=== PATIENT | male | born 1995 | race African-American/Black ===

== ENCOUNTER 2019-01-29 21:18 | Inpatient (IN) ==
[2019-01-29] MEDS ORDERED: SODIUM CHLORIDE 0.9% 1,000 ML IV STA (21:29)
[2019-01-29] MEDS ORDERED: DIPHTHERIA/TETANUS ADULT VACCINE 0.5 ML SYRINGE IM ONE (21:31)
[2019-01-29] MEDS ORDERED: SODIUM CHLORIDE 0.9% 1,000 ML IV PRN (21:32)
[2019-01-29 21:35] LABS: Basophils # 0.1 10*3/uL (0.0-0.2); Basophils % 0.5 % (0.0-0.8); Eosinophils # 0.2 10*3/uL (0.0-0.87); Eosinophils % 1.6 % (0.00-10.9); Hematocrit 37.8 VOL% (42.0-52.0); Hemoglobin 11.4 GM/DL (14.0-18.0); Immature Granulocytes % 1.6 %; Immature Granulocytes Absolute 0.16 #; Lymphocytes # 4.9 10*3/uL (1.4-4.0); Lymphocytes % 48.4 % (21.2-54.2); Mean Corpuscular HGB Conc 30.2 GM/DL (32-36); Mean Platelet Volume 10.2 FL (9.6-12.0); Monocytes % 5.4 % (1.7-12.7); Neutrophils % 42.5 % (38.7-73.9); Platelet Count 264 T/CUMM (130-400); Red Blood Count 4.02 MC/CUMM (3.8-5.5); Red Cell Distribution Width 15.7 % (9.3-17.3); White Blood Count 10.1 T/CUMM (4-12)
[2019-01-29 21:43] LABS: INR 1.1; PT Patient Result 11.8 SECS (9.6-12.2); Partial Thromboplastin Time 21.3 SECS (20.8-36.0)
[2019-01-29] MEDS ORDERED: HEPARIN 5,000 UNIT/1 ML VIAL ONE (22:04)
[2019-01-29] MEDS ORDERED: ceFAZolin 1,000 MG VIAL ONE (22:04)
[2019-01-29 22:10] LABS: Albumin 3.4 G/DL (3.4-5.0); Bilirubin,Total 0.4 MG/DL (0.2-1.0); Calcium 7.7 MG/DL (8.5-10.1); Osmolality,Calculated 284.5 MOS/KG (273-304); Total Protein 6.3 G/DL (6.4-8.3)
[2019-01-29 22:29] LABS: Barbiturates Screen,Urine Negative (Negative); Benzodiazepines Screen,Urine Negative (Negative); Cannabinoid Screen,Urine Positive (Negative); Opiate Screen,Urine Positive (Negative); Phencyclidine Screen,Urine Negative (Negative)
[2019-01-29 22:35] LABS: Apearance,Urine CLEAR (Clear); Bilirubin,Urine Negative (Negative); Blood, Urine Negative (Negative); Glucose,Urine (UA) Negative (Negative); Hyaline Casts,Urine 1 /LPF (0-3); Ketones,Urine 5 mg/dL (Negative); Mucus,Urine Occasional /LPF (Occasional); Nitrite,Urine Negative (Negative); Protein,Urine Negative; RBC,Urine 2 /HPF (0-4); Urine Color Yellow (Yellow); Urine Specific Gravity 1.026 (1.001-1.035); Urine Urobilinogen < 2.0 EU/DL (0.2-1.0); WBC,Urine 2 /HPF (0-6)
[2019-01-29] MEDS ORDERED: diphenhydrAMINE 50 MG/1 ML VIAL IV PRN (23:57)
[2019-01-29] MEDS ORDERED: ONDANSETRON 4 MG/2 ML VIAL IV PRN (23:57)
[2019-01-29] MEDS ORDERED: PROMETHAZINE INJ 25 MG in SODIUM CHLORIDE 0.9% 50 ML IV PRN (23:57)
[2019-01-29] MEDS ORDERED: MEPERIDINE 25 MG/1 ML VIAL IV PRN (23:57)
[2019-01-30 00:34] LABS: ABG Base Excess -6.6 MMOL/L (-2.5-2.5); ABG Oxygen Saturation 99.5 % (95-100); ABG PCO2 48.9 MM HG (35-48); ABG PH 7.238 (7.35-7.45); ABG TCO2 19.5 MMOL/L (23-27); Glucose Heart Surgery 108 MG/DL (74-106); Hematocrit Heart Surgery 29.1 PERCENT (42-52); Hemoglobin Heart Surgery 9.4 G/DL (14.0-18.0); Ionized Calcium Arterial 1.24 MMOL/L (1.21-1.46); PCO2 Patient Temp Arterial 48.9 MMHG; PH Patient Temp Arterial 7.238; Patient Temperature 37 CELCIUS; Potassium Heart/CVR 4.5 MMOL/L (3.5-5.1); Sodium Heart/CVR 137 MMOL/L (135-145)
[2019-01-30] MEDS ORDERED: PROPOFOL 1,000 MG/100 ML BOTTLE IV SCH ×2 (01:00→01:30)
[2019-01-30] MEDS ORDERED: PROPOFOL 1,000 MG/100 ML BOTTLE IV ONE (01:02)
[2019-01-30] MEDS ORDERED: SODIUM CHLORIDE 0.9% 1,000 ML IV PRN (01:14)
[2019-01-30] MEDS ORDERED: LACTATED RINGERS 1,000 ML IV ONE (01:14)
[2019-01-30] MEDS ORDERED: KETAMINE 500 MG/10 ML VIAL ONE (01:29)
[2019-01-30] MEDS ORDERED: ePHEDrine 50 MG/ML AMP ONE (01:30)
[2019-01-30] MEDS ORDERED: ONDANSETRON 4 MG/2 ML VIAL ONE ×2 (01:32→01:38)
[2019-01-30] MEDS: HYDROmorphone 2 MG/1 ML VIAL IV PRN ×5 (01:35→10:59)
[2019-01-30] MEDS ORDERED: LIDOCAINE 2% 5 ML VIAL ONE (01:36)
[2019-01-30] MEDS ORDERED: PROPOFOL 200 MG/20 ML VIAL IV ONE (01:36)
[2019-01-30] MEDS ORDERED: CALCIUM CHLORIDE 1,000 MG/10 ML VIAL IV ONE (01:37)
[2019-01-30] MEDS ORDERED: MIDAZOLAM 2 MG/2 ML VIAL ONE (01:37)
[2019-01-30] MEDS ORDERED: fentaNYL 100 MCG/2 ML VIAL ONE (01:37)
[2019-01-30] MEDS ORDERED: SEVOFLURANE 1 UNIT/15 MINUTE INH ONE (01:37)
[2019-01-30] MEDS ORDERED: HEPARIN 10,000 UNIT/10 ML VIAL ONE (01:37)
[2019-01-30] MEDS ORDERED: SODIUM BICARBONATE 50 MEQ/50 ML VIAL IV ONE (01:37)
[2019-01-30] MEDS ORDERED: SUCCINYLCHOLINE 200 MG/10 ML VIAL ONE (01:38)
[2019-01-30] MEDS ORDERED: GLYCOPYRROLATE 0.4 MG/2 ML VIAL ONE (01:38)
[2019-01-30] MEDS ORDERED: PHENYLEPHRINE 1 MG/10 ML SYRINGE IV ONE (01:38)
[2019-01-30] MEDS ORDERED: NEOSTIGMINE 10 MG/10 ML VIAL ONE (01:38)
[2019-01-30] MEDS ORDERED: ROCURONIUM 100 MG/10 ML VIAL IV ONE (01:38)
[2019-01-30] MEDS ORDERED: SODIUM CHLORIDE 0.9% 250 ML IV ONE (01:38)
[2019-01-30] MEDS ORDERED: PHENYLEPHRINE 10 MG/1 ML VIAL IV ONE (01:38)
[2019-01-30] MEDS ORDERED: SODIUM CHLORIDE 0.9% 2,000 ML IV ONE (01:38)
[2019-01-30] MEDS ORDERED: LACTATED RINGERS 4,000 ML IV ONE (01:38)
[2019-01-30] MEDS ORDERED: INFLUENZA VIRUS VACCINE 0.5 ML SYRINGE IM ONE (01:46)
[2019-01-30 02:06] LABS: Basophils % 0.2 % (0.0-0.8); Eosinophils % 0.1 % (0.00-10.9); Hematocrit 29.4 VOL% (42.0-52.0); Hemoglobin 9.2 GM/DL (14.0-18.0); Immature Granulocytes % 1.7 %; Immature Granulocytes Absolute 0.39 #; Lymphocytes # 3.5 10*3/uL (1.4-4.0); Lymphocytes % 15.2 % (21.2-54.2); Mean Corpuscular HGB Conc 31.3 GM/DL (32-36); Mean Corpuscular Volume 93.3 FL (87-102); Mean Platelet Volume 10.3 FL (9.6-12.0); Monocytes % 7.6 % (1.7-12.7); Neutrophils % 75.2 % (38.7-73.9); Red Blood Count 3.15 MC/CUMM (3.8-5.5); Red Cell Distribution Width 15.9 % (9.3-17.3)
[2019-01-30 02:10] LABS: Platelet Count 153 T/CUMM (130-400); White Blood Count 22.8 T/CUMM (4-12)
[2019-01-30 02:11] LABS: ABG Base Excess -4.4 MMOL/L (-2.5-2.5); ABG HCO3 20.8 MMOL/L (20-26); ABG Oxygen Saturation 99.8 % (95-100); ABG PCO2 45.6 MM HG (35-48); ABG PH 7.293 (7.35-7.45); ABG TCO2 20.6 MMOL/L (23-27); Allen Test Positive; Pt O2 Delivery Device Ventilator
[2019-01-30 02:26] LABS: Alanine Aminotransferase 21 U/L (16-61); Albumin 2.5 G/DL (3.4-5.0); Alkaline Phosphatase 39 U/L (45-117); Aspartate Amino Transferase 21 U/L (0-37); Blood Urea Nitrogen 12 MG/DL (7-18); Estimated Glom Filtration Rate 119 ML/MIN; Glucose 88 MG/DL (74-106); Osmolality,Calculated 286.7 MOS/KG (273-304); Ovalocytes 1+; Platelet Estimate Normal; Polychromasia Few; Total Protein 4.5 G/DL (6.4-8.3)
[2019-01-30 02:27] LABS: Burr Cells 1+
[2019-01-30 02:28] LABS: Hypochromasia Slight
[2019-01-30] MEDS: LACTATED RINGERS 1,000 ML IV SCH ×5 (02:40→20:18)
[2019-01-30 03:12] LABS: HIV Antigen/Antibody Result Nonreactive (Nonreactive); Hepatitis B Surface Ag Quant < 0.10 Index; Hepatitis B Surface Ag Result Negative (Negative); Hepatitis C Virus Ab Quant < 0.02 Index; Hepatitis C Virus Ab Result Negative (Negative)
[2019-01-30 04:12] LABS: ABG Base Excess -2.4 MMOL/L (-2.5-2.5); ABG HCO3 23.3 MMOL/L (20-26); ABG Oxygen Saturation 98.6 % (95-100); ABG PCO2 43.9 MM HG (35-48); ABG PH 7.342 (7.35-7.45); ABG PO2 260.2 MM HG (80-95); ABG TCO2 24.6 MMOL/L (23-27); Allen Test Positive; Pt O2 Delivery Device Ventilator
[2019-01-30 04:21] LABS: Basophils % 0.2 % (0.0-0.8); Eosinophils % 0.1 % (0.00-10.9); Hematocrit 26.2 VOL% (42.0-52.0); Hemoglobin 8.3 GM/DL (14.0-18.0); Immature Granulocytes % 1.2 %; Immature Granulocytes Absolute 0.21 #; Lymphocytes # 2.9 10*3/uL (1.4-4.0); Lymphocytes % 16.5 % (21.2-54.2); Mean Corpuscular HGB Conc 31.7 GM/DL (32-36); Mean Corpuscular Volume 90.7 FL (87-102); Mean Platelet Volume 10.5 FL (9.6-12.0); Monocytes % 6.8 % (1.7-12.7); Neutrophils % 75.2 % (38.7-73.9); Platelet Count 123 T/CUMM (130-400); Red Blood Count 2.89 MC/CUMM (3.8-5.5); Red Cell Distribution Width 15.6 % (9.3-17.3); White Blood Count 17.4 T/CUMM (4-12)
[2019-01-30 04:38] LABS: Alanine Aminotransferase 17 U/L (16-61); Albumin 2.3 G/DL (3.4-5.0); Alkaline Phosphatase 33 U/L (45-117); Aspartate Amino Transferase 23 U/L (0-37); Blood Urea Nitrogen 12 MG/DL (7-18); Calcium 7.8 MG/DL (8.5-10.1); Estimated Glom Filtration Rate 132 ML/MIN; Glucose 92 MG/DL (74-106); Osmolality,Calculated 287.7 MOS/KG (273-304)
[2019-01-30] MEDS: ceFAZolin 1,000 MG in SYRINGE 1 EACH IV SCH ×3 (07:37→23:17)
[2019-01-30] MEDS: ACETAMINOPHEN 325 MG TABLET PO PRN (16:05)
[2019-01-30] MEDS: NICOTINE 14 MG/24 HR PATCH TRANSDERM SCH (16:05)
[2019-01-30] MEDS: ENOXAPARIN 40 MG/0.4 ML SYRINGE SUBCUT SCH (18:32)
[2019-01-31] MEDS: ACETAMINOPHEN 325 MG TABLET PO PRN ×3 (00:17→13:56)
[2019-01-31 05:29] LABS: Basophils % 0.2 % (0.0-0.8); Eosinophils # 0.1 10*3/uL (0.0-0.87); Eosinophils % 0.7 % (0.00-10.9); Hematocrit 20.2 VOL% (42.0-52.0); Hemoglobin 6.6 GM/DL (14.0-18.0); Immature Granulocytes % 0.6 %; Immature Granulocytes Absolute 0.06 #; Mean Corpuscular HGB Conc 32.7 GM/DL (32-36); Mean Corpuscular Volume 88.6 FL (87-102); Mean Platelet Volume 11.1 FL (9.6-12.0); Monocytes % 11.2 % (1.7-12.7); Neutrophils % 66.3 % (38.7-73.9); Platelet Count 123 T/CUMM (130-400); Red Blood Count 2.28 MC/CUMM (3.8-5.5); Red Cell Distribution Width 15.4 % (9.3-17.3); White Blood Count 9.5 T/CUMM (4-12)
[2019-01-31 05:39] LABS: Calcium 7.9 MG/DL (8.5-10.1); Osmolality,Calculated 278.3 MOS/KG (273-304)
[2019-01-31] MEDS: LACTATED RINGERS 1,000 ML IV SCH ×2 (06:42→14:29)
[2019-01-31] MEDS ORDERED: SODIUM CHLORIDE 0.9% 1,000 ML IV PRN (07:16)
[2019-01-31] MEDS ORDERED: MAGNESIUM SULF RIDER 2 GM in PREMIX 1 EACH IV PRN (07:19)
[2019-01-31] MEDS ORDERED: MAGNESIUM SULF RIDER 4 GM in PREMIX 1 EACH IV PRN (07:19)
[2019-01-31] MEDS: HYDROmorphone 2 MG/1 ML VIAL IV PRN ×2 (08:12→15:51)
[2019-01-31] MEDS: NICOTINE 14 MG/24 HR PATCH TRANSDERM SCH (08:18)
[2019-01-31] MEDS: ceFAZolin 1,000 MG in SYRINGE 1 EACH IV SCH ×3 (08:18→23:15)
[2019-01-31] MEDS: ONDANSETRON 4 MG/2 ML VIAL IV PRN (17:56)
[2019-01-31 18:48] LABS: Hemoglobin 8.4 GM/DL (14.0-18.0)
[2019-01-31] MEDS: ENOXAPARIN 40 MG/0.4 ML SYRINGE SUBCUT SCH (21:08)
[2019-02-01 06:24] LABS: Basophils % 0.2 % (0.0-0.8); Eosinophils # 0.1 10*3/uL (0.0-0.87); Hematocrit 26.9 VOL% (42.0-52.0); Immature Granulocytes % 0.5 %; Immature Granulocytes Absolute 0.05 #; Lymphocytes # 2.5 10*3/uL (1.4-4.0); Lymphocytes % 22.6 % (21.2-54.2); Mean Corpuscular HGB Conc 33.5 GM/DL (32-36); Mean Corpuscular Volume 88.8 FL (87-102); Mean Platelet Volume 10.8 FL (9.6-12.0); Monocytes % 11.9 % (1.7-12.7); Neutrophils % 63.8 % (38.7-73.9); Platelet Count 144 T/CUMM (130-400); Red Blood Count 3.03 MC/CUMM (3.8-5.5); Red Cell Distribution Width 14.7 % (9.3-17.3); White Blood Count 10.9 T/CUMM (4-12)
[2019-02-01 06:56] LABS: Calcium 8.6 MG/DL (8.5-10.1); Osmolality,Calculated 271.7 MOS/KG (273-304)
[2019-02-01] MEDS: ceFAZolin 1,000 MG in SYRINGE 1 EACH IV SCH ×3 (07:58→23:39)
[2019-02-01] MEDS: HYDROmorphone 2 MG/1 ML VIAL IV PRN ×3 (07:58→23:43)
[2019-02-01] MEDS: NICOTINE 14 MG/24 HR PATCH TRANSDERM SCH (07:59)
[2019-02-01] MEDS: POTASSIUM CHLORIDE 20 MEQ TABLET PO PRN ×3 (07:59→15:30)
[2019-02-01] MEDS: ONDANSETRON 4 MG/2 ML VIAL IV PRN ×3 (08:16→23:43)
[2019-02-01] MEDS ORDERED: HYDROmorphone 2 MG/1 ML VIAL IV ONE (09:03)
[2019-02-01] MEDS ORDERED: CLINDAMYCIN INJ 900 MG in PREMIX 1 EACH IV ONE (09:29)
[2019-02-01] MEDS: KETOROLAC 30 MG/1 ML VIAL IV SCH ×3 (11:32→20:48)
[2019-02-01] MEDS: ENOXAPARIN 40 MG/0.4 ML SYRINGE SUBCUT SCH (20:48)
[2019-02-01] MEDS: LACTATED RINGERS 1,000 ML IV SCH (23:45)
[2019-02-02] MEDS: KETOROLAC 30 MG/1 ML VIAL IV SCH ×4 (04:13→20:43)
[2019-02-02 05:41] LABS: Basophils % 0.4 % (0.0-0.8); Eosinophils # 0.2 10*3/uL (0.0-0.87); Eosinophils % 1.9 % (0.00-10.9); Hematocrit 24.4 VOL% (42.0-52.0); Hemoglobin 7.9 GM/DL (14.0-18.0); Immature Granulocytes % 0.4 %; Immature Granulocytes Absolute 0.03 #; Lymphocytes # 2.1 10*3/uL (1.4-4.0); Lymphocytes % 26.2 % (21.2-54.2); Mean Corpuscular HGB Conc 32.4 GM/DL (32-36); Mean Corpuscular Volume 91.7 FL (87-102); Mean Platelet Volume 10.4 FL (9.6-12.0); Monocytes % 10.8 % (1.7-12.7); Neutrophils % 60.3 % (38.7-73.9); Platelet Count 138 T/CUMM (130-400); Red Blood Count 2.66 MC/CUMM (3.8-5.5); Red Cell Distribution Width 14.6 % (9.3-17.3); White Blood Count 7.8 T/CUMM (4-12)
[2019-02-02] MEDS ORDERED: CLINDAMYCIN INJ 900 MG in PREMIX 1 EACH IV ONE (06:00)
[2019-02-02 06:03] LABS: Calcium 8.5 MG/DL (8.5-10.1); Osmolality,Calculated 275.4 MOS/KG (273-304)
[2019-02-02] MEDS ORDERED: BUPIVACAINE 0.5% /EPI 10 ML VIAL ONE ×2 (06:50→11:02)
[2019-02-02] MEDS ORDERED: LIDOCAINE 1%/EPI INJ 20 ML VIAL ONE ×2 (06:50→11:02)
[2019-02-02] MEDS ORDERED: SEVOFLURANE 1 UNIT/15 MINUTE INH ONE ×2 (08:24→12:36)
[2019-02-02] MEDS ORDERED: PROPOFOL 200 MG/20 ML VIAL IV ONE ×2 (08:24→12:36)
[2019-02-02] MEDS ORDERED: MIDAZOLAM 2 MG/2 ML VIAL ONE ×2 (08:24→12:36)
[2019-02-02] MEDS ORDERED: LIDOCAINE 2% 5 ML VIAL ONE ×2 (08:24→12:37)
[2019-02-02] MEDS ORDERED: fentaNYL 100 MCG/2 ML VIAL ONE ×2 (08:24→12:36)
[2019-02-02] MEDS ORDERED: DEXAMETHASONE 4 MG/1 ML VIAL ONE (08:25)
[2019-02-02] MEDS ORDERED: ONDANSETRON 4 MG/2 ML VIAL ONE (08:25)
[2019-02-02] MEDS ORDERED: PHENYLEPHRINE 1 MG/10 ML SYRINGE IV ONE (08:25)
[2019-02-02] MEDS ORDERED: KETAMINE 500 MG/10 ML VIAL ONE (08:25)
[2019-02-02] MEDS: NICOTINE 14 MG/24 HR PATCH TRANSDERM SCH (09:41)
[2019-02-02] MEDS: HYDROmorphone 2 MG/1 ML VIAL IV PRN ×2 (10:02→14:27)
[2019-02-02] MEDS ORDERED: ceFAZolin 1,000 MG VIAL ONE (11:56)
[2019-02-02] MEDS ORDERED: ROCURONIUM 100 MG/10 ML VIAL IV ONE (12:36)
[2019-02-02] MEDS ORDERED: SUCCINYLCHOLINE 200 MG/10 ML VIAL ONE (12:36)
[2019-02-02] MEDS ORDERED: LACTATED RINGERS 1,000 ML IV ONE (12:36)
[2019-02-02] MEDS: ENOXAPARIN 40 MG/0.4 ML SYRINGE SUBCUT SCH (20:43)
[2019-02-03] MEDS: KETOROLAC 30 MG/1 ML VIAL IV SCH ×4 (03:25→21:04)
[2019-02-03] MEDS: HYDROmorphone 2 MG/1 ML VIAL IV PRN ×2 (06:14→13:31)
[2019-02-03] MEDS: NICOTINE 14 MG/24 HR PATCH TRANSDERM SCH (08:54)
[2019-02-03 08:58] LABS: Basophils % 0.3 % (0.0-0.8); Eosinophils # 0.1 10*3/uL (0.0-0.87); Eosinophils % 1.1 % (0.00-10.9); Hematocrit 25.9 VOL% (42.0-52.0); Hemoglobin 8.5 GM/DL (14.0-18.0); Immature Granulocytes % 0.6 %; Immature Granulocytes Absolute 0.07 #; Lymphocytes # 2.5 10*3/uL (1.4-4.0); Lymphocytes % 23.4 % (21.2-54.2); Mean Corpuscular HGB Conc 32.8 GM/DL (32-36); Mean Corpuscular Volume 90.6 FL (87-102); Monocytes % 8.2 % (1.7-12.7); Neutrophils % 66.4 % (38.7-73.9); Platelet Count 244 T/CUMM (130-400); Red Blood Count 2.86 MC/CUMM (3.8-5.5); Red Cell Distribution Width 14.5 % (9.3-17.3); White Blood Count 10.8 T/CUMM (4-12)
[2019-02-03] MEDS: MAGNESIUM HYDROXIDE SUSP 30 ML UDCUP PO PRN (15:16)
[2019-02-03] MEDS: ENOXAPARIN 40 MG/0.4 ML SYRINGE SUBCUT SCH (18:49)
[2019-02-04] MEDS: KETOROLAC 30 MG/1 ML VIAL IV SCH ×4 (04:30→21:02)
[2019-02-04] MEDS: LACTATED RINGERS 1,000 ML IV SCH (06:57)
[2019-02-04] MEDS: NICOTINE 14 MG/24 HR PATCH TRANSDERM SCH (09:08)
[2019-02-04] MEDS: MAGNESIUM HYDROXIDE SUSP 30 ML UDCUP PO PRN (09:08)
[2019-02-04] MEDS: ENOXAPARIN 40 MG/0.4 ML SYRINGE SUBCUT SCH (18:33)
[2019-02-05] MEDS: KETOROLAC 30 MG/1 ML VIAL IV SCH ×2 (03:57→08:40)
[2019-02-05] MEDS: NICOTINE 14 MG/24 HR PATCH TRANSDERM SCH (08:17)
[2019-02-05 11:35] VITALS: BP 149/75
== END 2019-02-05 12:32 | disposition home or self-care (01) | DRG 907 ==
LOC: N.ED 21:18 → N.ICU 21:57 → N.3E 01-31 15:04
PROVIDERS: ADMIT Surgery; ATTEND Surgery